=== PATIENT | female | born 1955 | race Asian ===

== ENCOUNTER 2016-11-01 13:29 | Observation (INO) | payer MEDICARE ==
[2016-11-01] VITALS (7 sets, daily range): BP systolic 141–165; BP diastolic 66–85; PULSE 65–76; TEMP 97.6–98.2
[~2016-11-01] VITALS: Ht 149.9 cm; Wt 43.9 kg
[2016-11-01] MEDS ORDERED: ULTRAM ER100 MG PO (14:05)
[2016-11-01] MEDS ORDERED: MS CONTIN 330 MG/TAB PO (14:05)
[2016-11-01] MEDS ORDERED: REMERON45 MG PO (14:06)
[2016-11-01] MEDS ORDERED: PROTONIX 40MG T40 MG PO (14:06)
[2016-11-01] MEDS ORDERED: LIPITOR20 MG PO (14:07)
[2016-11-01] MEDS ORDERED: VITAMIN D 1001000 IU PO (14:08)
[2016-11-01] MEDS ORDERED: VESICARE10 MG PO (14:09)
[2016-11-01] MEDS ORDERED: K-TAB10 PO (14:09)
[2016-11-01 21:06] LABS: HEMATOCRIT 37.8 % (37.0-47.0); HEMOGLOBIN 13.2 g/dl (12.5-16.0); MEAN CELL VOLUME 97 fl (80.0-100.0); MEAN CORPUSCULAR HEMOGLOBIN 34 pg (27.0-31.0); MEAN CORPUSCULAR HGB CONC 35 g/dl (33.0-37.0); MEAN PLATELET VOLUME 9.9 fl (7.4-10.4); PLATELET COUNT 148 K/mm3 (130-400); RED BLOOD COUNT 3.88 M/mm3 (4.10-5.30); REDCELL DISTRIBUTION WIDTH-CV 13.7 % (11.5-14.5); WHITE BLOOD COUNT 8.1 K/mm3 (4.8-10.8)
[2016-11-01 21:20] LABS: ADJUSTED CALCIUM 8.7 mg/dL (8.4-10.2); ALBUMIN 4.1 gm/dL (3.5-5.0); CALCIUM 8.8 mg/dL (8.4-10.2); CREATININE, serum 0.43 mg/dL (0.52-1.25); TOTAL PROTEIN 6.9 gm/dL (6.4-8.2)
[2016-11-01 21:29] LABS: POTASSIUM 2.6 mmol/L (3.4-5.0)
[2016-11-01 21:53] LABS: MAGNESIUM 1.2 mg/dL (1.6-2.3)
[2016-11-02 01:04] LABS: HEMATOCRIT 37.6 % (37.0-47.0); HEMOGLOBIN 13.5 g/dl (12.5-16.0)
[2016-11-02 02:45] VITALS: BP 161/87; PULSE 50; TEMP 98.1
[2016-11-02 04:31] LABS: PH 8 (5-8); SQUAMOUS EPITHELIAL 0-2 /hpf; URINE APPEARANCE Clear; URINE BACTERIA None Seen /hpf; URINE BILIRUBIN Negative (NEGATIVE); URINE BLOOD Negative (NEGATIVE); URINE COLOR Yellow; URINE GLUCOSE Negative (NEGATIVE); URINE KETONE 2+ (NEGATIVE); URINE UROBILINOGEN Negative (NEGATIVE); URINE WBC 0-2 /hpf
[2016-11-02 06:00] VITALS: BP 100/45; PULSE 77; TEMP 98.8
[2016-11-02 07:43] LABS: BASO % 0.1 % (0.0-2.0); GRAN # 6.1 (1.4-6.5); GRAN % 84.9 % (42.2-75.2); HEMATOCRIT 37.1 % (37.0-47.0); HEMOGLOBIN 13.1 g/dl (12.5-16.0); LYMPH # 0.8 (1.2-3.4); LYMPH % 11.8 % (20.0-51.0); MEAN CELL VOLUME 97 fl (80.0-100.0); MEAN CORPUSCULAR HEMOGLOBIN 34 pg (27.0-31.0); MEAN CORPUSCULAR HGB CONC 35 g/dl (33.0-37.0); MEAN PLATELET VOLUME 10.4 fl (7.4-10.4); MONO # 0.2 (0.1-0.6); MONO % 2.8 % (1.7-9.3); PLATELET COUNT 165 K/mm3 (130-400); RED BLOOD COUNT 3.82 M/mm3 (4.10-5.30); REDCELL DISTRIBUTION WIDTH-CV 13.8 % (11.5-14.5); WHITE BLOOD COUNT 7.1 K/mm3 (4.8-10.8)
[2016-11-02 07:52] LABS: BILIRUBIN,DIRECT 0.4 mg/dL (0.0-0.4); BILIRUBIN,TOTAL 0.9 mg/dL (0.0-1.0); CALCIUM 8.5 mg/dL (8.4-10.2); CREATININE, serum 0.48 mg/dL (0.52-1.25); POTASSIUM 3.5 mmol/L (3.4-5.0); TOTAL PROTEIN 6.7 gm/dL (6.4-8.2)
[2016-11-02 08:12] LABS: MAGNESIUM 1.2 mg/dL (1.6-2.3)
[2016-11-02 09:33] VITALS: BP 106/54; PULSE 75; TEMP 99.1
[2016-11-02 14:02] VITALS: BP 99/55; PULSE 74; TEMP 98.4
[2016-11-02 14:28] LABS: MAGNESIUM 2.3 mg/dL (1.6-2.3)
[2016-11-02 15:39] LABS: POTASSIUM 3.8 mmol/L (3.4-5.0)
[2016-11-02] MEDS ORDERED: ZOFRAN 4MG T4 MG/TAB PO (15:46)
== END 2016-11-02 17:00 | disposition home or self-care (01) ==
LOC: SDCO 13:29 → SURG 17:15 → SDCO 23:39 → SURG 11-02 17:00
PROVIDERS: Internal Medicine Gastroenterology; Nurse Practitioner; Nurse Practitioner Family
DX: K31.5 Obstruction of duodenum (principal); K83.8 Other specified diseases of biliary tract; K86.89 Other specified diseases of pancreas; R94.5 Abnormal results of liver function studies; R93.3 Abnormal findings on diagnostic imaging of other parts of digestive tract; K85.90 Acute pancreatitis without necrosis or infection, unspecified; E87.6 Hypokalemia; K21.9 Gastro-esophageal reflux disease without esophagitis; G89.29 Other chronic pain; M54.9 Dorsalgia, unspecified; M19.90 Unspecified osteoarthritis, unspecified site; E78.5 Hyperlipidemia, unspecified; Z90.49 Acquired absence of other specified parts of digestive tract; Z90.710 Acquired absence of both cervix and uterus; N32.81 Overactive bladder; F17.210 Nicotine dependence, cigarettes, uncomplicated
CPT/HCPCS: C1769; C9113; G0378; J0360; J1170; J2405; J2550; J2704; J3010; J3475; J3480; J7120; Q9967

== ENCOUNTER 2022-03-26 18:44 | Inpatient (IN) | payer MEDICARE ==
[2022-03-26] VITALS (176 sets, daily range): BP systolic 94; BP diastolic 60; PULSE 89; TEMP 97.8; O2SAT 64–100
[~2022-03-26] VITALS: Ht 149.9 cm; Wt 47.3 kg
[~2022-03-26 18:44] MED LIST: K-TAB10 PO; LIPITOR20 MG PO; MS CONTIN 330 MG/TAB PO; PROTONIX 40MG T40 MG PO; REMERON45 MG PO; ULTRAM ER100 MG PO; VESICARE10 MG PO; VITAMIN D 1001000 IU PO; ZOFRAN 4MG T4 MG/TAB PO
--- NOTE | 2022-03-26 20:06 | NUR ---
AWAITING PT ARRIVAL FROM [facility] VIA EMS. REPORT RECIEVED FROM KENDAL TEJEDA.
--- NOTE | 2022-03-26 20:30 | NUR ---
PT ARRIVED TO UNIT BY EMS TRANSFER FROM [facility]. MOVED TO ICU BED AND CONNECTED TO MONITORING. VSS AT THIS TIME. LR TO PIV L F/A ON GRAVITY TUBING. CALL TO NEGRA DIETZ TO NOTIFY OF PT'S ARRIVAL. PT DENIES PAIN AT THIS TIME, ONLY STATES IS HUNGRY AND THIRSTY. WILL CONTINUE TO MONITOR.
[2022-03-26] MEDS ORDERED: ALDACTONE 25MG25 M1 PO (21:00)
[2022-03-26] MEDS ORDERED: ZYPREXA 5MG5 MG PO (21:00)
[2022-03-26] MEDS ORDERED: MOBIC15 MG PO (21:01)
[2022-03-26] MEDS ORDERED: MORPHINE 1515 MG/TAB PO (21:01)
[2022-03-26] MEDS ORDERED: NEURONTIN600 MG/TAB PO (21:02)
[2022-03-26] MEDS ORDERED: FERROUS SU325 MG/TAB PO (21:04)
[2022-03-26 22:40] LABS: BASO % 0.2 % (0.0-2.0); EOS # 0.1 K/mm3 (0.0-0.7); EOS % 1.1 % (0.0-4.0); GRAN # 3.2 K/mm3 (1.4-6.5); GRAN % 70.8 % (42.2-75.2); LYMPH # 0.7 K/mm3 (1.2-3.4); LYMPH % 16.4 % (20.0-51.0); MEAN CELL VOLUME 86 fl (80.0-100.0); MEAN CORPUSCULAR HGB CONC 34 g/dl (33.0-37.0); MEAN PLATELET VOLUME 9.1 fl (7.4-10.4); MONO # 0.5 K/mm3 (0.1-0.6); MONO % 11.1 % (1.7-9.3); PLATELET COUNT 139 K/mm3 (130-400); RED BLOOD COUNT 3.02 M/mm3 (4.10-5.30); REDCELL DISTRIBUTION WIDTH-CV 18.7 % (11.5-14.5)
[2022-03-26 22:41] LABS: HEMOGLOBIN 8.8 g/dl (12.5-16.0); MEAN CORPUSCULAR HEMOGLOBIN 29 pg (27-31)
[2022-03-26 22:58] LABS: CALCIUM 7.9 mg/dL (8.4-10.2); CREATININE, serum 0.58 mg/dL (0.57-1.11); MAGNESIUM 1.4 mg/dL (1.6-2.6)
[2022-03-26 23:00] LABS: POTASSIUM 2.8 mmol/L (3.5-4.5)
[2022-03-27] VITALS (1229 sets, daily range): BP systolic 82–106; BP diastolic 54–71; PULSE 72–87; TEMP 96.9–98.1; O2SAT 71–100
--- NOTE | 2022-03-27 00:19 | NUR ---
BP REMAIN SOFT, PT ASSYMTOMATIC. INCREASE IVF TO 150ML/HR PER PROVIDER.
[2022-03-27 05:36] LABS: BASO % 0.2 % (0.0-2.0); EOS # 0.1 K/mm3 (0.0-0.7); EOS % 1.9 % (0.0-4.0); GRAN # 3.3 K/mm3 (1.4-6.5); GRAN % 57.2 % (42.2-75.2); LYMPH # 1.6 K/mm3 (1.2-3.4); LYMPH % 27.7 % (20.0-51.0); MEAN CELL VOLUME 87 fl (80.0-100.0); MEAN CORPUSCULAR HGB CONC 34 g/dl (33.0-37.0); MONO # 0.7 K/mm3 (0.1-0.6); MONO % 12.5 % (1.7-9.3); PLATELET COUNT 160 K/mm3 (130-400); RED BLOOD COUNT 3.25 M/mm3 (4.10-5.30); REDCELL DISTRIBUTION WIDTH-CV 19.2 % (11.5-14.5)
[2022-03-27 05:37] LABS: HEMATOCRIT 28.4 % (37.0-47.0); HEMOGLOBIN 9.5 g/dl (12.5-16.0); MEAN CORPUSCULAR HEMOGLOBIN 29 pg (27-31)
[2022-03-27 05:57] LABS: ALBUMIN 2.8 gm/dL (3.4-4.8); BILIRUBIN,TOTAL 0.7 mg/dL (0.2-1.2); CALCIUM 8.2 mg/dL (8.4-10.2); CHOLESTEROL RISK RATIO 2.1; CREATININE, serum 0.5 mg/dL (0.57-1.11); MAGNESIUM 2.2 mg/dL (1.6-2.6); POTASSIUM 4.4 mmol/L (3.5-4.5); TOTAL PROTEIN 5.2 gm/dL (6.2-8.1)
--- NOTE | 2022-03-27 07:45 | NUR ---
Patient slightly drowsy during shift assessment, however opens eyes to speech and follows commands. Assisted with rigo-care after incontinent stool. Patient denies any pain at this time and reports that she is "hungry". Will received an echo this morning and breakfast ordered for patient. Call light left within reach; will continue to monitor.
--- NOTE | 2022-03-27 13:09 | NUR ---
Initial visit; Patient awake and greeted Production Assistant who asked if there was anything she could do for patient. Patient stated that she is Buddist. Production Assistant answered and said that she prays her hemalatha gives her comfort. Production Assistant received a smile.
--- NOTE | 2022-03-27 13:30 | NUR ---
SW attempted to meet with patient x2 and patient was difficult to arouse. She will briefly open her eyes to name, but falls right back to sleep. Phone call made to the patients "son" Beltran to complete intake. Per Beltran, he noticed that the patient had become bedridden and wasn't going down the stairs to utilize the bathroom. He goes on to state that he was working with the local dramatic critic's office and EMS to get his mother to agree to go to the hospital and had been unsuccessful. Per Beltran the patient was fully independent with her ADL's and did not have any DME or home oxygen needs. PCP is Dr. jones and to Beltran's knowledge that patient has been managing her own medications but "thinks" she gets them through [facility] in [place]. Phone call received from patients RN. RN received phone call from the patients "daughter" Callie ([phone]) who lives in [place]. Per Callie, Rajendra is not the patients son but instead her DPOA-HC. Callie states she is the patients only biological child. ED reached out to office to see if they have a DPOA-HC on file. Message left for RN. Phone call made to [facility] to see if they have a copy on file. Hospital does have a copy and request made to have it faxed to the ICU unit.
--- NOTE | 2022-03-27 15:00 | NUR ---
Discussed low BP readings with hospitalist. Systolic running in the 80's. Hospitalist discussed patient status with daughter and she confirmed that patient's BP always runs "low". Hospitalist ok with a systolic BP in the 80's at this time. Will continue to monitor.
--- NOTE | 2022-03-27 19:23 | NUR ---
Patient has had multiple systolic BP reading in the 70's. Patient is alert and oriented and asymptomatic. Hosptialist notified and will administer 500 ml bolus of LR.
--- NOTE | 2022-03-27 22:35 | NUR ---
RECEIVED REPORT FROM DAY SHIFT NURSE. PT IS RESTING IN BED AND BP IS LOW. PT IS RECEIVING A 500 ML BOLUS. OTHER VITALS ARE STABLE AT THIS TIME.
[2022-03-28] VITALS (596 sets, daily range): BP systolic 72–102; BP diastolic 44–59; PULSE 63–91; TEMP 97.4–98.7; O2SAT 87–98
[2022-03-28 05:48] LABS: EOS # 0.1 K/mm3 (0.0-0.7); EOS % 2.1 % (0.0-4.0); GRAN # 2.1 K/mm3 (1.4-6.5); GRAN % 52.6 % (42.2-75.2); LYMPH # 1.2 K/mm3 (1.2-3.4); LYMPH % 31.5 % (20.0-51.0); MEAN CORPUSCULAR HGB CONC 31 g/dl (33.0-37.0); MEAN PLATELET VOLUME 9.4 fl (7.4-10.4); MONO # 0.5 K/mm3 (0.1-0.6); MONO % 13.3 % (1.7-9.3); PLATELET COUNT 140 K/mm3 (130-400); RED BLOOD COUNT 2.45 M/mm3 (4.10-5.30)
[2022-03-28 05:52] LABS: HEMATOCRIT 23.1 % (37.0-47.0); HEMOGLOBIN 7.2 g/dl (12.5-16.0); MEAN CELL VOLUME 94 fl (80.0-100.0); MEAN CORPUSCULAR HEMOGLOBIN 29 pg (27-31)
[2022-03-28 06:08] LABS: ALBUMIN 1.9 gm/dL (3.4-4.8); BILIRUBIN,TOTAL 0.3 mg/dL (0.2-1.2); CALCIUM 7.5 mg/dL (8.4-10.2); CREATININE, serum 0.45 mg/dL (0.57-1.11); MAGNESIUM 1.5 mg/dL (1.6-2.6); POTASSIUM 3.9 mmol/L (3.5-4.5); TOTAL PROTEIN 3.8 gm/dL (6.2-8.1)
--- NOTE | 2022-03-28 07:43 | NUR ---
PT IS A&OX4. PT HAD AN UNEVENTFUL NIGHT. PT'S BP HAVE BEEN LOW. HOSPITALIST WAS NOTIFIED. MONITORED PT THROUGHOUT THE SHIFT. GAVE REPORT TO DAY SHIFT NURSE.
--- NOTE | 2022-03-28 08:45 | NUR ---
Awake and alert this morning and eating breakfast when nurse entered room. Assessment completed. Reports some left leg pain which occurs only with movement. No abnormalities noted to leg. Assisted with repositioning. Denied any other concerns at this time. OP/PT working with patient and were able to assist her to the bathroom and recliner. Tolerated well. Call light left within reach.
--- NOTE | 2022-03-28 10:45 | NUR ---
Assisted patient up to the medical floor; alert and oriented upon transfer. Utilized the bathroom upstairs with 1 assist and tolerated well. Met receiving RN in room.
--- NOTE | 2022-03-28 10:53 | NUR ---
Patient to transfer to the medical floor.
--- NOTE | 2022-03-28 11:30 | NUR ---
PATIENT TRANSFERED TO ROOM 357 AT 1100 BY TOASTER ELEMENT REPAIRER. PATIENT IS ALERT AND ORIENTED X4. DENIES PAIN, BUT STATES SHE HAS SOME DISCOMFORT. LUNGS CTA, DIMINISHED IN THE BASES BILATERALLY. PICC LINE IN PLACE TO RIGHT ARM WITH LR AND POTASSIUM PHOS RUNNING, PATIENT TOLERATING WELL. ON TELEMETRY. ORIENTED TO ROOM AND CALL LIGHT. BED ALARM ON. FALL PRECAUTIONS IN PLACE. DENIES FURTHER NEEDS, CALL LIGHT WITHIN REACH.
--- NOTE | 2022-03-28 18:44 | NUR ---
PATIENT IN BED AT THIS TIME, DENIES ANY NEEDS. INCONTINENT OF URINE, YASIR CARE PROVIDED. DR. HOBBS UPDATED REGARDING HYPOTENSION, WHICH IS KNOWN TO BE PATIENT'S BASELINE, NEW PARAMETERS ENTERED FOR PHYSICIAN NOTIFICATION R/T BP.
[2022-03-29 05:47] VITALS: BP 99/54; PULSE 99; TEMP 98.4
[2022-03-29 08:37] LABS: BASO % 0.2 % (0.0-2.0); EOS # 0.1 K/mm3 (0.0-0.7); EOS % 1.4 % (0.0-4.0); GRAN # 2.6 K/mm3 (1.4-6.5); GRAN % 60.1 % (42.2-75.2); LYMPH % 23.1 % (20.0-51.0); MEAN CELL VOLUME 90 fl (80.0-100.0); MEAN CORPUSCULAR HGB CONC 33 g/dl (33.0-37.0); MEAN PLATELET VOLUME 9.7 fl (7.4-10.4); MONO # 0.6 K/mm3 (0.1-0.6); MONO % 14.5 % (1.7-9.3); PLATELET COUNT 179 K/mm3 (130-400); RED BLOOD COUNT 2.72 M/mm3 (4.10-5.30); REDCELL DISTRIBUTION WIDTH-CV 22.3 % (11.5-14.5)
[2022-03-29 08:38] LABS: HEMATOCRIT 24.6 % (37.0-47.0); MEAN CORPUSCULAR HEMOGLOBIN 29 pg (27-31)
[2022-03-29 08:42] VITALS: BP 103/63; PULSE 90; TEMP 98.7
[2022-03-29 08:54] LABS: CALCIUM 7.7 mg/dL (8.4-10.2); CREATININE, serum 0.52 mg/dL (0.57-1.11); POTASSIUM 4.4 mmol/L (3.5-4.5)
--- NOTE | 2022-03-29 10:35 | NUR ---
SHIFT ASSESSMENT COMPLETED AND MORNING MEDICATIONS ADMINISTERED PER ORDER. PATIENT IS ALERT AND ORIENTED. DENIES ANY PAIN. UP WITH ONE ASSIST TO THE BATHROOM. PICC TO RIGHT ARM PATENT WITH GOOD BLOOD RETURN, FLUIDS RUNNING, PATIENT TOLERATING WELL. DENIES ANY NEEDS AT THIS TIME. CALL LIGHT WITHIN REACH.
[2022-03-29 12:45] VITALS: BP 125/72; PULSE 100; TEMP 98.2
--- NOTE | 2022-03-29 16:25 | NUR ---
ED staffed with the PA. The patient will likely be able to discharge tomorrow. PT/OT are recommending home with family support and home health. ED met with the patient to update and discuss home health services. The patient states that she is open to home health. ED provided her with Medicare.gov's list of home health agencies that serve [place]. The patient was agreeable to using [facility]. She states that one of her friends can likely transport her home. ED then read the IM form outloud to her. The patient states that she does think she is being discharged too soon tomorrow. She would like to appeal the discharge. ED inquired why she thinks she is being discharged too soon. The patient states that the doctors always think she is ready to discharge, but then she ends up back at the hospital. ED assisted with contacting [facility]. The patient was waiting for them to answer. ED notified packing house laborer. ED faxed a referral to [facility].
[2022-03-29 18:24] VITALS: BP 116/68; PULSE 111; TEMP 98.5
--- NOTE | 2022-03-30 05:00 | NUR ---
ASSESSMENT COMPLETE FOR CARE GIVER. PT EXPRESSED GREAT CONCERN ABOUT BEING DISCHARGED TODAY. PT LIVES ALONE AND FEELS SHE IS NOT WELL/HEALED ENOUGH TO CARE FOR HERSELF ALONE. PT FEELS IF SHE IS DISCHANGED, SHE WILL WIND UP BACK IN THE HOSPITAL BECAUSE SHE HAS NOT HEALED COMPLETELY. CALL LIGHT WITHIN REACH.
[2022-03-30 06:04] VITALS: BP 97/57; PULSE 98; TEMP 98.3
[2022-03-30 06:26] LABS: BASO % 0.3 % (0.0-2.0); GRAN # 1.9 K/mm3 (1.4-6.5); GRAN % 48.5 % (42.2-75.2); LYMPH # 1.2 K/mm3 (1.2-3.4); LYMPH % 30.2 % (20.0-51.0); MEAN CELL VOLUME 91 fl (80.0-100.0); MEAN CORPUSCULAR HGB CONC 32 g/dl (33.0-37.0); MEAN PLATELET VOLUME 9.6 fl (7.4-10.4); MONO # 0.8 K/mm3 (0.1-0.6); MONO % 19.7 % (1.7-9.3); PLATELET COUNT 179 K/mm3 (130-400); REDCELL DISTRIBUTION WIDTH-CV 22.8 % (11.5-14.5)
[2022-03-30 06:38] LABS: CALCIUM 8.3 mg/dL (8.4-10.2); CREATININE, serum 0.53 mg/dL (0.57-1.11); MAGNESIUM 1.6 mg/dL (1.6-2.6); PHOSPHOROUS 4.5 mg/dL (2.3-4.7); POTASSIUM 3.7 mmol/L (3.5-4.5)
[2022-03-30 06:42] LABS: HEMATOCRIT 22.8 % (37.0-47.0); HEMOGLOBIN 7.3 g/dl (12.5-16.0); MEAN CORPUSCULAR HEMOGLOBIN 29 pg (27-31)
--- NOTE | 2022-03-30 08:17 | NUR ---
Nurse First Aid received faxed request from [employer] for Medicare Beneficiary Apeal documentation request prior to noon this date (03/30/2022). Nurse First Aid faxed requested clinical documentation to [phone]. Case control ID: *[id number]* Nurse First Aid placed copy of request in patient medical record for EMR filing. Nurse First Aid continues to follow while case is independently reviewed for discharge planning. Nurse First Aid to check case status online 09/30 at [email or web address]
--- NOTE | 2022-03-30 12:46 | NUR ---
Applied Technologist in consultation with Viola OMER and Dr. Aguiar; chart reviewed. Patient may be candidate for substance use disorder treatment programming, due to history of morphine dependency. May be a contributing factor to patient's presenting problem per family member. No information whether patient discussion about [facility] treatment is discussed and/or initiated for potential discharge plan; patient must be open to this idea and willing to admit herself. Dr. Aguiar requests follow up. Applied Technologist confirming patient DPOA-HC. Family reports having contacted [facility]. Awaiting [facility] appeal review; treatment team supporting safe discharge plan to meet patient needs.
--- NOTE | 2022-03-30 13:21 | NUR ---
Seam Taper Machine rounds: Seam Taper Machine visit attempted. Room is very dark, with the window shades pulled down. Patient declined visit because she wants to sleep.
--- NOTE | 2022-03-30 15:07 | NUR ---
PATIENT IS PLEASANT AND CONSUMING ALL MEALS. DID NOT WANT TO DISCHARGE TODAY BECAUSE SHE STATED SHE DID NOT FEEL READY TO GO HOME. SHE FILED AN APPEAL. VSS.PROVIDER KEPT PATIENT ANOTHER DAY. WILL CONTINUE TO MONITOR.
[2022-03-30 17:00] VITALS: BP 104/62; PULSE 97; TEMP 98
--- NOTE | 2022-03-31 05:00 | NUR ---
ASSESSMENT COMPLETE FOR ANIMAL SITTER. PT COMPLAINED OF STOMACH AND HIP PAIN. PT REFUSED ULTRAM OR TYLENOL. PT STATED SHE'S ALLERGIC TO IBUPROFEN AND SHE CAN'T HAVE ASPIRIN. I EXPLAINED TO PT THAT ULTRAM AND TYLENOL DOESN'T CONTAIN IBUPROFEN OR ASPIRIN. PT INSIST SHE CAN'T TAKE THEM. HOSPITALIST CALLED. IV MORPHINE (2mg) ORDERED AND GIVEN. PT FELT THE MORPHINE HELPED HER PAIN. HOWEVER, WHEN PT COMPLAINED AGAIN OF STOMACH AND HIP, MORPHINE WAS OFFERED, BUT PT REFUSED, STATING SHE DID NOT WANT TO GET ADDICTED. CALL LIGHT WITHIN REACH.
[2022-03-31 06:05] VITALS: BP 102/59; PULSE 72; TEMP 98.1
[2022-03-31 06:24] LABS: MEAN CELL VOLUME 94 fl (80.0-100.0); MEAN CORPUSCULAR HGB CONC 31 g/dl (33.0-37.0); MEAN PLATELET VOLUME 9.6 fl (7.4-10.4); PLATELET COUNT 212 K/mm3 (130-400); RED BLOOD COUNT 2.44 M/mm3 (4.10-5.30); REDCELL DISTRIBUTION WIDTH-CV 22.5 % (11.5-14.5)
[2022-03-31 06:35] LABS: HEMOGLOBIN 7.1 g/dl (12.5-16.0); MEAN CORPUSCULAR HEMOGLOBIN 29 pg (27-31)
[2022-03-31 06:39] LABS: CALCIUM 8.7 mg/dL (8.4-10.2); CREATININE, serum 0.55 mg/dL (0.57-1.11); POTASSIUM 4.1 mmol/L (3.5-4.5)
[2022-03-31 07:39] LABS: ANISOCYTOSIS 3+; BAND 1 % (0-10); EOSINOPHIL 1 % (0-4); LYMPHOCYTE 30 % (20.0-51.0); NEUTROPHILS 46 % (42.0-75.2); PLATELET ESTIMATE NORMAL (NORMAL)
[2022-03-31 08:28] VITALS: BP 115/62; PULSE 89; TEMP 98.6
--- NOTE | 2022-03-31 15:45 | NUR ---
PATIENT HAS BEEN CONTINENT THIS SHIFT. DOES NOT COMPLAIN OF ABD. PAIN. VSS. EATING ALL MEALS. POSSIBLE PLACEMENT TO SUBSTANCE TREATMENT FACILITY IF PATIENT AGREES. WILL CONTINUE TO MONITOR FOR CHANGES. ASSESSMENT COMPLETE.
[2022-03-31 19:39] VITALS: BP 117/73; PULSE 102; TEMP 99.1
[2022-03-31 19:40] VITALS: PULSE 102; TEMP 99.1
--- NOTE | 2022-04-01 04:45 | NUR ---
ASSESSMENT COMPLETE FOR PHARMACY TECHNICIAN PROGRAM DIRECTOR. PT CONTINUES TO COMPLAIN OF ABD AND HIP DISCOMFORT, BUT HAS HAD LITTLE TO NO NARCOTICS DURING HER STAY IN THE HOSPITAL. PT HAD A LARGE BM THIS SHIFT. AND 3 SANDWICH BOXES, WHICH SHE'S HAD ALL 4 NIGHTS SHE WAS ASSIGNED TO ME. PT ALSO COMPLAINS OF PAIN WHEN SHE BITS DOWN ON THE RIGHT SIDE OF HER MOUTH. I ASKED IF SHE HAD A TOOTHACHE. SHE STATED HER JAW HURTS WHEN SHE CHEWS. BUT CONTINUES TO REFUSE PAIN MEDICATION. CALL LIGHT WITHIN REACH.
[2022-04-01 06:32] LABS: MEAN CELL VOLUME 95 fl (80.0-100.0); MEAN CORPUSCULAR HGB CONC 31 g/dl (33.0-37.0); MEAN PLATELET VOLUME 9.6 fl (7.4-10.4); PLATELET COUNT 243 K/mm3 (130-400); RED BLOOD COUNT 2.41 M/mm3 (4.10-5.30); REDCELL DISTRIBUTION WIDTH-CV 22.9 % (11.5-14.5)
[2022-04-01 06:35] LABS: HEMATOCRIT 22.9 % (37.0-47.0); MEAN CORPUSCULAR HEMOGLOBIN 29 pg (27-31)
[2022-04-01 06:54] LABS: CALCIUM 8.1 mg/dL (8.4-10.2); CREATININE, serum 0.61 mg/dL (0.57-1.11); POTASSIUM 3.8 mmol/L (3.5-4.5)
[2022-04-01 08:07] LABS: BAND 6 % (0-10); LYMPHOCYTE 31 % (20.0-51.0); NEUTROPHILS 39 % (42.0-75.2); NUCLEATED RED BLOOD CELL 1 (0-6)
[2022-04-01 08:08] LABS: ANISOCYTOSIS 3+; HYPOCHROMIA 3+
[2022-04-01 08:09] LABS: OVALOCYTES 2+
[2022-04-01 08:10] LABS: BURR CELLS 1+
--- NOTE | 2022-04-01 08:27 | NUR ---
PT UP INDEPENDENTLY TO BR. EATING AND DRINKING WITH NO N/V. AM MEDS GIVEN ORDERED. PT DENIES PAIN. PT STATES "I AM TOO OLD TO LIVE BY MY SELF. I NEED HELP".
--- NOTE | 2022-04-01 09:08 | NUR ---
SW met with patient to discuss home health options. [facility].Gov list of agencies that service [place] is provided to the patient. Patient verbalizes that she will pick an agency when she gets home after she talks with her friend to discuss which agency is "truthful". SW educated the patient that we would need to have an agency picked prior to discharge so we know where to send the orders to. Patient is adament on picking an agency after she gets home. Informed patient she will then need to follow up with , whom is her PCP to write her orders. ED spoke with the patient about her appeal being denied and starting today, her care will not be covered by her insurance and that it would be private pay. Patient verbalizes her understanding to the above. States her friend will come and pick her up later today. Patients RN and hospitalist team updated.
--- NOTE | 2022-04-01 16:35 | NUR ---
[facility] report filed: [id number]
--- NOTE | 2022-04-01 16:50 | NUR ---
DISCHARGE INSTRUCTIONS REVIEWED WITH PATIENT. PT VERBALIZED UNDERSTANDING. PT LEFT UNIT PER WHEEL CHAIR WITH STAFF.
== END 2022-04-01 16:45 | disposition home or self-care (01) | DRG 640 ==
LOC: ICU 18:44 → MEDICAL 03-28 11:27
PROVIDERS: Internal Medicine; Physician Assistant; Student in an Organized Health Care Education/Training Program; ADMIT Student in an Organized Health Care Education/Training Program
PROC: 02HV33Z Insertion of Infusion Device into Superior Vena Cava, Percutaneous Approach (ICD-10-PCS; principal; 2022-03-27)
DX: E87.1 Hypo-osmolality and hyponatremia (principal); K85.90 Acute pancreatitis without necrosis or infection, unspecified; K74.60 Unspecified cirrhosis of liver; D64.9 Anemia, unspecified; I50.9 Heart failure, unspecified; F32.A Depression, unspecified; M79.7 Fibromyalgia; G25.81 Restless legs syndrome; N32.81 Overactive bladder; K21.9 Gastro-esophageal reflux disease without esophagitis; E78.5 Hyperlipidemia, unspecified; F10.90 Alcohol use, unspecified, uncomplicated; F17.210 Nicotine dependence, cigarettes, uncomplicated; E87.6 Hypokalemia; E83.42 Hypomagnesemia; E83.39 Other disorders of phosphorus metabolism; F41.9 Anxiety disorder, unspecified; R62.7 Adult failure to thrive; G89.29 Other chronic pain; M54.50 Low back pain, unspecified; I95.9 Hypotension, unspecified; L89.151 Pressure ulcer of sacral region, stage 1; Z88.6 Allergy status to analgesic agent; Z90.710 Acquired absence of both cervix and uterus; Z90.49 Acquired absence of other specified parts of digestive tract; Z88.8 Allergy status to other drugs, medicaments and biological substances
CPT/HCPCS: C1751; J2270; J3475; J7040; J7050; J7120